=== PATIENT | female | born 1990 | race Two or more races ===

== ENCOUNTER 2023-04-21 13:39 | Emergency (ER) | payer OTHER ==
[~2023-04-21] VITALS: Ht 170.2 cm; Wt 102.1 kg
[~2023-04-21 13:39] MED LIST: TRAMADOL HCL50 MG PO
[2023-04-21 14:55] LABS: HEMATOCRIT 39.5 % (36.0-45.00); HEMOGLOBIN 13.3 g/dL (12.0-15.00); MEAN CELL VOLUME 87.7 fL (80.00-100.00); MEAN CORPUSCULAR HEMOGLOBIN 29.6 pg (27.00-32.0); MEAN CORPUSCULAR HGB CONC 33.7 g/dl (32.0-36.0); PLATELET COUNT 260 K/uL (150-450); RED BLOOD COUNT 4.51 M/uL (4.00-6.00); RED CELL DISTRIBUTION WIDTH 13.9 % (11.5-14.5)
[2023-04-21] MEDS ORDERED: ZITHROMAX500 MG PO (15:35)
[2023-04-21] MEDS ORDERED: XOPENEX CO1.25 MG/0. IH (15:35)
[2023-04-21] MEDS ORDERED: TUSSIN100 MG/51 PO (15:35)
== END 2023-04-21 15:45 | disposition home or self-care (01) ==
LOC: ER
PROVIDERS: General Practice
DX: B34.8 Other viral infections of unspecified site (principal); Z20.822 Contact with and (suspected) exposure to COVID-19

== ENCOUNTER 2023-05-10 09:59 | Outpatient (CLI) | payer OTHER ==
[~2023-05-10 09:59] MED LIST changes: +TUSSIN100 MG/51 PO; +XOPENEX CO1.25 MG/0. IH; +ZITHROMAX500 MG PO
== END 2023-05-10 10:01 | disposition home or self-care (01) ==
LOC: PRENATAL 09:59
PROVIDERS: ATTEND Obstetrics & Gynecology Maternal & Fetal Medicine
DX: O36.80X0 Pregnancy with inconclusive fetal viability, not applicable or unspecified (principal); Z36.82 Encounter for antenatal screening for nuchal translucency; Z36.9 Encounter for antenatal screening, unspecified; O34.10 Maternal care for benign tumor of corpus uteri, unspecified trimester; Z3A.12 12 weeks gestation of pregnancy

== ENCOUNTER 2023-07-07 14:12 | Outpatient (CLI) | payer OTHER ==
[~2023-07-07 14:12] MED LIST changes: +PRENATAL + DHA1 EAC1 PO
== END 2023-07-07 14:19 | disposition home or self-care (01) ==
LOC: PRENATAL 14:12
PROVIDERS: ATTEND Obstetrics & Gynecology Maternal & Fetal Medicine
DX: O35.9XX0 Maternal care for (suspected) fetal abnormality and damage, unspecified, not applicable or unspecified (principal); O35.3XX0 Maternal care for (suspected) damage to fetus from viral disease in mother, not applicable or unspecified; O44.00 Complete placenta previa NOS or without hemorrhage, unspecified trimester; O99.210 Obesity complicating pregnancy, unspecified trimester; Z3A.20 20 weeks gestation of pregnancy

== ENCOUNTER 2023-08-16 11:43 | Outpatient (CLI) | payer OTHER | END 2023-08-16 11:44 | disposition home or self-care (01) | LOC: PRENATAL 11:43 | PROVIDERS: ATTEND Obstetrics & Gynecology Maternal & Fetal Medicine | DX: O26.849 Uterine size-date discrepancy, unspecified trimester (principal); O43.90 Unspecified placental disorder, unspecified trimester; O34.10 Maternal care for benign tumor of corpus uteri, unspecified trimester; Z3A.26 26 weeks gestation of pregnancy ==

== ENCOUNTER 2024-11-04 12:55 | Outpatient (CLI) | payer OTHER ==
[~2024-11-04 12:55] MED LIST changes: +PROVIDA OB CAP1 EACH
== END 2024-11-04 13:12 | disposition home or self-care (01) ==
LOC: MRI 12:55
PROVIDERS: ATTEND Specialist
DX: M51.26 Other intervertebral disc displacement, lumbar region (principal); M51.360 Other intervertebral disc degeneration, lumbar region with discogenic back pain only
CPT/HCPCS: 72148

== ENCOUNTER 2024-12-04 15:23 | Outpatient (CLI) | payer OTHER | END 2024-12-04 15:39 | disposition home or self-care (01) | LOC: MRI 15:23 | PROVIDERS: ATTEND Specialist | DX: M51.26 Other intervertebral disc displacement, lumbar region (principal); M51.24 Other intervertebral disc displacement, thoracic region | CPT/HCPCS: 72146 ==